=== PATIENT | male | born 1980 | race Hispanic/Latino ===

== ENCOUNTER 2017-01-23 01:50 | Emergency (ER) | payer SELFPAY ==
[2017-01-23 03:59] LABS: Basophils % (Auto) 0.4 % (0.0-1.8); Eosinophils % (Auto) 0.6 % (0.0-4.3); Hematocrit 37.7 % (35.5-45.6); Hemoglobin 12.7 gm/dl (11.8-15.2); Mean Corpuscular HGB Conc 34 % (32-34); Mean Corpuscular Hemoglobin 29 pg (28-32); Mean Corpuscular Volume 87 fl (84-94); Platelet Count 309 K/mm3 (140-440); Red Blood Count 4.33 M/mm3 (3.65-5.03); Red Cell Distribution Width 14.7 % (13.2-15.2); White Blood Count 8.1 K/mm3 (4.5-11.0)
--- NOTE | 2017-01-23 04:45 | Cat Scan Report ---
FINAL REPORT PROCEDURE: CT HEAD/BRAIN WO CON TECHNIQUE: Computerized tomography of the head was performed without contrast material. HISTORY: ams COMPARISON: No prior studies are available for comparison. FINDINGS: Skull and scalp: Normal. Paranasal sinuses: Normal. Ventricles and subarachnoid spaces: Normal. Cerebrum: No evidence of hemorrhage, acute infarction or mass . Cerebellum and brainstem: No evidence of hemorrhage, acute infarction or mass. Vasculature: Normal. Comments: None. IMPRESSION: Normal Examination
[2017-01-23 05:12] LABS: Alanine Aminotransferase 105 units/L (7-56); Albumin 4.6 g/dL (3.9-5); Albumin/Globulin Ratio 1.3 %; Alkaline Phosphatase 92 units/L (35-129); Anion Gap 24 mmol/L; Blood Urea Nitrogen 14 mg/dL (9-20); Calcium 9.9 mg/dL (8.4-10.2); Carbon Dioxide 23 mmol/L (22-30); Chloride 105.7 mmol/L (98-107); Glucose 124 mg/dL (75-100); Potassium 3.2 mmol/L (3.6-5.0); Sodium 149 mmol/L (137-145); Total Protein 8.1 g/dL (6.3-8.2)
[2017-01-23] MEDS ORDERED: NACL 0.9% 1000 ML 1,000 ML IV ONE (06:24)
--- NOTE | 2017-01-23 06:30 | Emergency Department Report ---
ED Altered Mental Status HPI - General Chief Complaint: Abdominal Pain Stated Complaint: SEIZURE/ABD PAIN Time Seen by Provider: 01/23/17 06:05 Source: EMS Mode of arrival: Stretcher Limitations: Altered Mental Status, Other - History of Present Illness MD Complaint: altered mental status, confusion, decreased responsiveness, intoxication, weakness -: Gradual Severity: moderate Consistency of Symptoms: waxing and waning Context: alcohol abuse, drug abuse Associated Symptoms: weakness, foul smelling urine. denies: chest pain, cough, diaphoresis, fever/chills, headaches, loss of appetite, malaise, nausea/vomiting , rash, seizure, shortness of breath, syncope, difficulty walking, diarrhea, incontinence Treatments Prior to Arrival: IV fluid - Related Data Allergies Allergy/AdvReac Type Severity Reaction Status Date / Time Unable to Assess Allergy Unverified 01/23/17 02:44 ED Review of Systems ROS: Stated complaint: SEIZURE/ABD PAIN Other details as noted in HPI Comment: Unobtainable due to pts medical conditions ED Past Medical Hx - Past Medical History Previous Medical History?: Yes - Surgical History Past Surgical History?: Yes - Social History Smoking Status: Current Every Day Smoker Substance Use Type: None ED Physical Exam - General Limitations: Other General appearance: lethargic, obtunded - Head Head exam: Present: atraumatic, normocephalic - Eye Eye exam: Present: normal appearance, PERRL - ENT ENT exam: Present: normal exam, normal orophraynx - Neck Neck exam: Present: normal inspection - Respiratory Respiratory exam: Present: normal lung sounds bilaterally. Absent: respiratory distress, wheezes, rales, rhonchi - Cardiovascular Cardiovascular Exam: Present: regular rate, normal rhythm - GI/Abdominal GI/Abdominal exam: Present: soft. Absent: distended, tenderness, guarding, rebound - Extremities Exam Extremities exam: Present: normal inspection - Back Exam Back exam: Present: normal inspection, full ROM - Skin Skin exam: Present: warm ED Course Vital Signs 01/23/17 01/23/17 01/23/17 02:13 03:36 04:35 Temperature 99 F 99 F 98 F Pulse Rate 112 H 104 H 89 Respiratory 18 18 18 Rate Blood Pressure Blood Pressure 122/79 115/69 [Left] O2 Sat by Pulse 99 100 96 Oximetry 01/23/17 01/23/17 06:35 08:58 Temperature 99 F Pulse Rate 86 97 H Respiratory 18 14 Rate Blood Pressure 120/81 Blood Pressure 108/57 [Left] O2 Sat by Pulse 96 99 Oximetry - Lab Data Result diagrams: 01/23/17 03:22 01/23/17 03:22 Lab Results 01/23/17 01/23/17 01/23/17 Range/Units 03:22 03:22 03:22 WBC 8.1 (4.5-11.0) K/mm3 RBC 4.33 (3.65-5.03) M/mm3 Hgb 12.7 (11.8-15.2) gm/dl Hct 37.7 (35.5-45.6) % MCV 87 (84-94) fl MCH 29 (28-32) pg MCHC 34 (32-34) % RDW 14.7 (13.2-15.2) % Plt Count 309 (140-440) K/mm3 Lymph % (Auto) 28.3 (13.4-35.0) % [place] % (Auto) 9.9 H (0.0-7.3) % Eos % (Auto) 0.6 (0.0-4.3) % Baso % (Auto) 0.4 (0.0-1.8) % Lymph # 2.3 (1.2-5.4) K/mm3 [place] # 0.8 (0.0-0.8) K/mm3 Eos # 0.0 (0.0-0.4) K/mm3 Baso # 0.0 (0.0-0.1) K/mm3 Seg Neutrophils % 60.8 (40.0-70.0) % Seg Neutrophils # 4.9 (1.8-7.7) K/mm3 Sodium 149 H (137-145) mmol/L Potassium 3.2 L (3.6-5.0) mmol/L Chloride 105.7 (98-107) mmol/L Carbon Dioxide 23 (22-30) mmol/L Anion Gap 24 mmol/L BUN 14 (9-20) mg/dL Creatinine 0.8 (0.8-1.5) mg/dL Estimated GFR > 60 ml/min BUN/Creatinine Ratio 17.50 % Glucose 124 H (75-100) mg/dL Lactic Acid 1.30 (0.7-2.0) mmol/L Calcium 9.9 (8.4-10.2) mg/dL Magnesium 2.10 (1.7-2.3) mg/dL Total Bilirubin 0.40 (0.1-1.2) mg/dL AST 62 H (5-40) units/L ALT 105 H (7-56) units/L Alkaline Phosphatase 92 (35-129) units/L Ammonia (25-60) umol/L Total Creatine Kinase (55-170) units/L Total Protein 8.1 (6.3-8.2) g/dL Albumin 4.6 (3.9-5) g/dL Albumin/Globulin Ratio 1.3 % TSH (0.270-4.200) mlU/mL Salicylates (2.8-20.0) mg/dL Acetaminophen (10.0-30.0) ug/mL Plasma/Serum Alcohol (0-0.07) gm% 01/23/17 01/23/17 01/23/17 Range/Units 03:22 03:22 03:22 WBC (4.5-11.0) K/mm3 RBC (3.65-5.03) M/mm3 Hgb (11.8-15.2) gm/dl Hct (35.5-45.6) % MCV (84-94) fl MCH (28-32) pg MCHC (32-34) % RDW (13.2-15.2) % Plt Count (140-440) K/mm3 Lymph % (Auto) (13.4-35.0) % [place] % (Auto) (0.0-7.3) % Eos % (Auto) (0.0-4.3) % Baso % (Auto) (0.0-1.8) % Lymph # (1.2-5.4) K/mm3 [place] # (0.0-0.8) K/mm3 Eos # (0.0-0.4) K/mm3 Baso # (0.0-0.1) K/mm3 Seg Neutrophils % (40.0-70.0) % Seg Neutrophils # (1.8-7.7) K/mm3 Sodium (137-145) mmol/L Potassium (3.6-5.0) mmol/L Chloride (98-107) mmol/L Carbon Dioxide (22-30) mmol/L Anion Gap mmol/L BUN (9-20) mg/dL Creatinine (0.8-1.5) mg/dL Estimated GFR ml/min BUN/Creatinine Ratio % Glucose (75-100) mg/dL Lactic Acid (0.7-2.0) mmol/L Calcium (8.4-10.2) mg/dL Magnesium (1.7-2.3) mg/dL Total Bilirubin (0.1-1.2) mg/dL AST (5-40) units/L ALT (7-56) units/L Alkaline Phosphatase (35-129) units/L Ammonia (25-60) umol/L Total Creatine Kinase (55-170) units/L Total Protein (6.3-8.2) g/dL Albumin (3.9-5) g/dL Albumin/Globulin Ratio % TSH 0.134 L (0.270-4.200) mlU/mL Salicylates < 0.3 L (2.8-20.0) mg/dL Acetaminophen < 15.0 (10.0-30.0) ug/mL Plasma/Serum Alcohol (0-0.07) gm% 01/23/17 01/23/17 01/23/17 Range/Units 03:22 05:34 06:47 WBC (4.5-11.0) K/mm3 RBC (3.65-5.03) M/mm3 Hgb (11.8-15.2) gm/dl Hct (35.5-45.6) % MCV (84-94) fl MCH (28-32) pg MCHC (32-34) % RDW (13.2-15.2) % Plt Count (140-440) K/mm3 Lymph % (Auto) (13.4-35.0) % [place] % (Auto) (0.0-7.3) % Eos % (Auto) (0.0-4.3) % Baso % (Auto) (0.0-1.8) % Lymph # (1.2-5.4) K/mm3 [place] # (0.0-0.8) K/mm3 Eos # (0.0-0.4) K/mm3 Baso # (0.0-0.1) K/mm3 Seg Neutrophils % (40.0-70.0) % Seg Neutrophils # (1.8-7.7) K/mm3 Sodium (137-145) mmol/L Potassium (3.6-5.0) mmol/L Chloride (98-107) mmol/L Carbon Dioxide (22-30) mmol/L Anion Gap mmol/L BUN (9-20) mg/dL Creatinine (0.8-1.5) mg/dL Estimated GFR ml/min BUN/Creatinine Ratio % Glucose (75-100) mg/dL Lactic Acid 0.90 1.20 (0.7-2.0) mmol/L Calcium (8.4-10.2) mg/dL Magnesium (1.7-2.3) mg/dL Total Bilirubin (0.1-1.2) mg/dL AST (5-40) units/L ALT (7-56) units/L Alkaline Phosphatase (35-129) units/L Ammonia (25-60) umol/L Total Creatine Kinase (55-170) units/L Total Protein (6.3-8.2) g/dL Albumin (3.9-5) g/dL Albumin/Globulin Ratio % TSH (0.270-4.200) mlU/mL Salicylates (2.8-20.0) mg/dL Acetaminophen (10.0-30.0) ug/mL Plasma/Serum Alcohol < 0.01 (0-0.07) gm% 01/23/17 01/23/17 Range/Units 06:47 06:47 WBC (4.5-11.0) K/mm3 RBC (3.65-5.03) M/mm3 Hgb (11.8-15.2) gm/dl Hct (35.5-45.6) % MCV (84-94) fl MCH (28-32) pg MCHC (32-34) % RDW (13.2-15.2) % Plt Count (140-440) K/mm3 Lymph % (Auto) (13.4-35.0) % [place] % (Auto) (0.0-7.3) % Eos % (Auto) (0.0-4.3) % Baso % (Auto) (0.0-1.8) % Lymph # (1.2-5.4) K/mm3 [place] # (0.0-0.8) K/mm3 Eos # (0.0-0.4) K/mm3 Baso # (0.0-0.1) K/mm3 Seg Neutrophils % (40.0-70.0) % Seg Neutrophils # (1.8-7.7) K/mm3 Sodium (137-145) mmol/L Potassium (3.6-5.0) mmol/L Chloride (98-107) mmol/L Carbon Dioxide (22-30) mmol/L Anion Gap mmol/L BUN (9-20) mg/dL Creatinine (0.8-1.5) mg/dL Estimated GFR ml/min BUN/Creatinine Ratio % Glucose (75-100) mg/dL Lactic Acid (0.7-2.0) mmol/L Calcium (8.4-10.2) mg/dL Magnesium (1.7-2.3) mg/dL Total Bilirubin (0.1-1.2) mg/dL AST (5-40) units/L ALT (7-56) units/L Alkaline Phosphatase (35-129) units/L Ammonia 73.0 H (25-60) umol/L Total Creatine Kinase 249 H (55-170) units/L Total Protein (6.3-8.2) g/dL Albumin (3.9-5) g/dL Albumin/Globulin Ratio % TSH (0.270-4.200) mlU/mL Salicylates (2.8-20.0) mg/dL Acetaminophen (10.0-30.0) ug/mL Plasma/Serum Alcohol (0-0.07) gm% - Radiology Data Radiology results: report reviewed, image reviewed - Medical Decision Making patient doing well, awake and eating , called who will pick him up in the ER, has no complaints at this time. VSS and normal Critical care attestation.: If time is entered above; I have spent that time in minutes in the direct care of this critically ill patient, excluding procedure time. ED Disposition Clinical Impression: Abdominal pain Disposition: DC-01 TO HOME OR SELFCARE Is pt being admited?: No Does the pt Need Aspirin: No Condition: Good Instructions: Abdominal Pain (ED) Referrals: PRIMARY CARE, [Primary Care Provider] - 3-5 Days Time of Disposition: 11:08
[2017-01-23 12:30] VITALS: BP 134/89
== END 2017-01-23 12:30 | disposition home or self-care (01) ==
LOC: ED 01:50
DX: R10.9 Unspecified abdominal pain (principal); R53.1 Weakness; F17.210 Nicotine dependence, cigarettes, uncomplicated
CPT/HCPCS: 36415; 70450; 80053; 82140; 82550; 83735; 84443; 85025; 93005; 93010; 96360; 99285; G0480; J7030; 80320

== ENCOUNTER 2017-01-29 02:56 | Emergency (ER) | payer OTHER ==
[2017-01-29 03:40] LABS: Basophils % (Auto) 0.3 % (0.0-1.8); Eosinophils % (Auto) 0.5 % (0.0-4.3); Hematocrit 38.4 % (35.5-45.6); Hemoglobin 13.1 gm/dl (11.8-15.2); Mean Corpuscular HGB Conc 34 % (32-34); Mean Corpuscular Hemoglobin 30 pg (28-32); Mean Corpuscular Volume 87 fl (84-94); Platelet Count 334 K/mm3 (140-440); Red Blood Count 4.43 M/mm3 (3.65-5.03); Red Cell Distribution Width 14.3 % (13.2-15.2); White Blood Count 8.4 K/mm3 (4.5-11.0)
[2017-01-29 03:53] LABS: Anion Gap 21 mmol/L; BUN/Creatinine Ratio 18.57; Blood Urea Nitrogen 13 mg/dL (9-20); Calcium 9.6 mg/dL (8.4-10.2); Carbon Dioxide 24 mmol/L (22-30); Glucose 99 mg/dL (75-100); Potassium 3.1 mmol/L (3.6-5.0); Sodium 139 mmol/L (137-145)
[2017-01-29] MEDS ORDERED: K-DUR PO ONE (06:44)
[2017-01-29] MEDS ORDERED: KEPPRA 1,000 MG/NS 0.75% 100ML 1,000 MG/100 ML BAG IV ONE (06:53)
[2017-01-29] MEDS ORDERED: NACL 0.9% 1000 ML 1,000 ML IV ONE (06:53)
--- NOTE | 2017-01-29 07:01 | Emergency Department Report ---
HPI - General Chief Complaint: Seizure Time Seen by Provider: 01/29/17 06:44 - HPI HPI: This is a 36-year-old male presents to the emergency department with complaint of a seizure earlier today. The patient says that he has some type of aura in which she knows that the seizure is oncoming. He says that he sat down and called EMS and then had a seizure. He does admit to a seizure history and he also admits to medication noncompliance the past 9 months. He thinks that he usually takes Depakote. He does not currently have a primary care doctor. He is a tobacco smoker. 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 No recent travel or sick contacts at home. In reviewing this patient's charts, it appears that the patient was here 5 days ago for abdominal pain but also there is some mention of seizure-like activity at that time as well. ED Past Medical Hx - Past Medical History Previous Medical History?: Yes Hx Seizures: Yes - Surgical History Past Surgical History?: Yes Hx Appendectomy: Yes - Social History Smoking Status: Current Every Day Smoker Substance Use Type: None - Medications Home Medications: Home Medications Medication Instructions Recorded Confirmed Last Taken Type Nitrofurantoin Clay/M-Cryst 100 mg PO Q12HR #14 capsule 01/29/17 Unknown Rx [Macrobid CAP] levETIRAcetam [Keppra TAB] 500 mg PO BID #60 tablet 01/29/17 Unknown Rx ED Review of Systems ROS: Stated complaint: SEIZURES Other details as noted in HPI Comment: All other systems reviewed and negative Constitutional: denies: chills, fever Eyes: denies: eye pain, eye discharge, vision change ENT: denies: ear pain, throat pain Respiratory: denies: cough, shortness of breath, wheezing Cardiovascular: denies: chest pain, palpitations Gastrointestinal: denies: abdominal pain, nausea, diarrhea Genitourinary: denies: urgency, dysuria Musculoskeletal: denies: back pain, joint swelling, arthralgia Skin: denies: rash, lesions Neurological: other (seizure). denies: headache, weakness, paresthesias Physical Exam - Physical Exam Vital Signs: Vital Signs 01/29/17 01/29/17 01/29/17 02:51 03:00 03:10 Pulse Rate 80 65 Respiratory 31 H 20 Rate Blood Pressure O2 Sat by Pulse 100 100 90 Oximetry 01/29/17 01/29/17 01/29/17 03:20 03:30 03:40 Pulse Rate 64 76 67 Respiratory 18 15 18 Rate Blood Pressure O2 Sat by Pulse 99 97 100 Oximetry 01/29/17 01/29/17 01/29/17 03:50 04:00 04:10 Pulse Rate 73 62 64 Respiratory 19 20 18 Rate Blood Pressure O2 Sat by Pulse 100 100 100 Oximetry 01/29/17 01/29/17 01/29/17 04:20 04:30 04:40 Pulse Rate 73 58 L 60 Respiratory 20 18 19 Rate Blood Pressure 92/55 O2 Sat by Pulse 99 100 100 Oximetry 01/29/17 01/29/17 01/29/17 04:50 05:00 05:10 Pulse Rate 55 L 57 L 61 Respiratory 19 18 19 Rate Blood Pressure 103/63 99/65 99/65 O2 Sat by Pulse 100 100 100 Oximetry 01/29/17 01/29/17 01/29/17 05:20 05:30 05:40 Pulse Rate 53 L 55 L 83 Respiratory 18 16 15 Rate Blood Pressure 104/66 106/61 106/61 O2 Sat by Pulse 99 100 100 Oximetry 01/29/17 01/29/17 01/29/17 05:50 06:00 06:10 Pulse Rate 54 L 57 L 64 Respiratory 17 16 18 Rate Blood Pressure 110/66 102/68 102/68 O2 Sat by Pulse 100 100 100 Oximetry 01/29/17 01/29/17 06:20 06:30 Pulse Rate 59 L 65 Respiratory 15 16 Rate Blood Pressure 96/56 104/65 O2 Sat by Pulse 100 100 Oximetry Physical Exam: GENERAL: The patient is well-developed well-nourished. HEENT: Normocephalic. Atraumatic. Extraocular motions are intact. Patient has moist mucous membranes. Pupils equal reactive to light bilaterally. NECK: Supple. Trachea is midline. Full range of motion. Nontender to palpation. CHEST/LUNGS: Clear to auscultation. There is no respiratory distress noted. HEART/CARDIOVASCULAR: Regular. There is no tachycardia. There is no gallop rub or murmur. ABDOMEN: Abdomen is soft, nontender. Patient has normal bowel sounds. There is no abdominal distention. SKIN: Skin is warm and dry. NEURO: Patient is sleepy but easily arousable. Once awake he is alert and oriented. The patient is cooperative. The patient has no focal neurologic deficits. The patient has normal speech. Cranial nerves II through XII grossly intact. MUSCULOSKELETAL: There is no tenderness or deformity. There is no limitation range of motion. There is no evidence of acute injury. ED Course Vital Signs 01/29/17 01/29/17 01/29/17 02:51 03:00 03:10 Pulse Rate 80 65 Respiratory 31 H 20 Rate Blood Pressure O2 Sat by Pulse 100 100 90 Oximetry 01/29/17 01/29/17 01/29/17 03:20 03:30 03:40 Pulse Rate 64 76 67 Respiratory 18 15 18 Rate Blood Pressure O2 Sat by Pulse 99 97 100 Oximetry 01/29/17 01/29/17 01/29/17 03:50 04:00 04:10 Pulse Rate 73 62 64 Respiratory 19 20 18 Rate Blood Pressure O2 Sat by Pulse 100 100 100 Oximetry 01/29/17 01/29/17 01/29/17 04:20 04:30 04:40 Pulse Rate 73 58 L 60 Respiratory 20 18 19 Rate Blood Pressure 92/55 O2 Sat by Pulse 99 100 100 Oximetry 01/29/17 01/29/17 01/29/17 04:50 05:00 05:10 Pulse Rate 55 L 57 L 61 Respiratory 19 18 19 Rate Blood Pressure 103/63 99/65 99/65 O2 Sat by Pulse 100 100 100 Oximetry 01/29/17 01/29/17 01/29/17 05:20 05:30 05:40 Pulse Rate 53 L 55 L 83 Respiratory 18 16 15 Rate Blood Pressure 104/66 106/61 106/61 O2 Sat by Pulse 99 100 100 Oximetry 01/29/17 01/29/17 01/29/17 05:50 06:00 06:10 Pulse Rate 54 L 57 L 64 Respiratory 17 16 18 Rate Blood Pressure 110/66 102/68 102/68 O2 Sat by Pulse 100 100 100 Oximetry 01/29/17 01/29/17 06:20 06:30 Pulse Rate 59 L 65 Respiratory 15 16 Rate Blood Pressure 96/56 104/65 O2 Sat by Pulse 100 100 Oximetry ED Medical Decision Making - Lab Data Result diagrams: 01/29/17 03:01/29/17 03:05 - EKG Data -: EKG Interpreted by Me EKG shows normal: sinus rhythm (with sinus arrhythmia), axis, intervals ( prolonged QTC), QRS complexes, ST-T waves Rate: normal - EKG Data When compared to previous EKG there are: no significant change Interpretation: unchanged when compared t (01/23/17) - Medical Decision Making 36 year old male presents to the emergency department after alleged seizure. He does have a history of seizures and has been noncompliant with these medications. Patient is sleepy but arousable. There are no focal, motor or sensory deficits. Cranial nerves are intact. His labs are mostly unremarkable and do not show any etiology of the patient's symptoms except for his urine drug screen which came back positive for polypharmacy/polysubstance abuse being positive for benzodiazepine's, barbituates, meth and cocaine. The patient also has a urinary tract infection. Given first dose of Macrobid here. He was reevaluated multiple times for multiple hours and has remained awake and alert without any further seizure-like activity. He was given a loading dose of Keppra. He will go home on Keppra twice a day and Macrobid for 7 days. He was given referrals for primary care, urology and neurology. He will return to the ER with any worsening of symptoms or any acute distress. Critical Care Time: No Critical care attestation.: If time is entered above; I have spent that time in minutes in the direct care of this critically ill patient, excluding procedure time. ED Disposition Clinical Impression: Seizure UTI (urinary tract infection) Qualifiers: Urinary tract infection type: acute cystitis Hematuria presence: without hematuria Qualified Code(s): N30.00 - Acute cystitis without hematuria Disposition: - TO HOME OR SELFCARE Is pt being admited?: No Condition: Stable Instructions: Urinary Tract Infection in Men (ED), Epilepsy (ED) Additional Instructions: Please follow-up with a primary care physician in the next few days. I've also given you a referral for a local urologist, Dr. Murrieta, to follow up regarding your urinary tract infection. I have started you on a seizure medication called Keppra to be taken twice daily. Return to the emergency department with any worsening of your symptoms or any acute distress. I will also give you a referral for a local neurologist, Dr. Matias, to follow up regarding your seizures. Prescriptions: levETIRAcetam [Keppra TAB] 500 mg PO BID #60 tablet Nitrofurantoin Clay/M-Cryst [Macrobid CAP] 100 mg PO Q12HR #14 capsule Referrals: PRIMARY CARE, [Primary Care Provider] - 3-5 Days JONI MATIAS MD [Staff Physician] - 3-5 Days DESTINI MURRIETA MD [Staff Physician] - 3-5 Days [facility] [Outside] - 3-5 Days Time of Disposition: 12:25
[2017-01-29 11:28] LABS: Urine Drugs of Abuse Note Disclamer
[2017-01-29 11:52] LABS: Bacteria,Urine 1+ /HPF (Negative); Bilirubin,Urine NEG (Negative); Blood,Urine SM (Negative); Ketones,Urine 20 mg/dL (Negative); Leukocyte Esterase,Urine LG (Negative); Mucus,Urine 1+ /HPF; Nitrite,Urine NEG (Negative)
[2017-01-29 11:57] LABS: WBC,Urine > 182.0 /HPF (0.0-6.0)
[2017-01-29] MEDS ORDERED: MACROBID PO ONE (12:04)
[2017-01-29 12:53] VITALS: BP 122/76
== END 2017-01-29 13:15 | disposition home or self-care (01) ==
LOC: ED 02:56
DX: R56.9 Unspecified convulsions (principal); N30.00 Acute cystitis without hematuria; F17.200 Nicotine dependence, unspecified, uncomplicated
CPT/HCPCS: 36415; 80048; 80178; 80307; 81001; 84443; 84484; 85025; 93005; 93010; 96361; 96374; 99284; G0480; J1953; J7030; 80320

== ENCOUNTER 2017-03-12 02:27 | Emergency (ER) | payer SELFPAY ==
[2017-03-12 05:24] VITALS: BP 135/94
[2017-03-12 06:41] LABS: Hematocrit 38.6 % (35.5-45.6); Hemoglobin 13.3 gm/dl (11.8-15.2); Mean Corpuscular HGB Conc 35 % (32-34); Mean Corpuscular Hemoglobin 30 pg (28-32); Mean Corpuscular Volume 88 fl (84-94); Platelet Count 346 K/mm3 (140-440); Red Blood Count 4.39 M/mm3 (3.65-5.03); Red Cell Distribution Width 13.8 % (13.2-15.2); White Blood Count 7.3 K/mm3 (4.5-11.0)
--- NOTE | 2017-03-12 06:46 | Cat Scan Report ---
FINAL REPORT PROCEDURE: CT HEAD/BRAIN WO CON TECHNIQUE: Computerized tomography of the head was performed without contrast material. HISTORY: syncope, memory loss, MORALES, Falling COMPARISON: No prior studies are available for comparison. FINDINGS: Skull and scalp: Normal. Paranasal sinuses: Normal. Ventricles and subarachnoid spaces: Normal. Cerebrum: No evidence of hemorrhage, acute infarction or mass . Cerebellum and brainstem: No evidence of hemorrhage, acute infarction or mass. Vasculature: Normal. Comments: None. IMPRESSION: There is no evidence of an acute intracranial process
[2017-03-12 06:51] LABS: Anion Gap 16 mmol/L; Blood Urea Nitrogen 12 mg/dL (9-20); Calcium 9.4 mg/dL (8.4-10.2); Carbon Dioxide 29 mmol/L (22-30); Chloride 97.3 mmol/L (98-107); Glucose 125 mg/dL (75-100); Potassium 4.5 mmol/L (3.6-5.0); Sodium 138 mmol/L (137-145)
--- NOTE | 2017-03-19 23:37 | ED Elopement Review ---
ED Pt Elopement review - Results review Lab results: Laboratory Tests 03/12/17 03/12/17 03/12/17 06:26 06:26 06:26 WBC 7.3 RBC 4.39 Hgb 13.3 Hct 38.6 MCV 88 MCH 30 MCHC 35 H RDW 13.8 Plt Count 346 Sodium 138 Potassium 4.5 Chloride 97.3 L Carbon Dioxide 29 Anion Gap 16 BUN 12 Creatinine 0.6 L Estimated GFR > 60 BUN/Creatinine Ratio 20.00 Glucose 125 H Calcium 9.4 Valproic Acid < 2.8 L - Call Back decision Pt Call Back Decision: No action required
== END 2017-03-12 07:00 | disposition left against medical advice (07) ==
LOC: ED 02:27
DX: R51 Headache (principal); Z53.21 Procedure and treatment not carried out due to patient leaving prior to being seen by health care provider
CPT/HCPCS: 36415; 70450; 80048; 80164; 85027

== ENCOUNTER 2017-06-01 23:32 | Emergency (ER) | payer SELFPAY ==
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
[2017-06-02] MEDS ORDERED: TORADOL IM ONE (20:15)
[2017-06-02] MEDS ORDERED: NORCO 5/325 PO ONE (20:15)
[2017-06-02] MEDS ORDERED: ZOFRAN ODT PO ONE (20:16)
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
[2017-06-02 21:16] LABS: Basophils % (Auto) 0.3 % (0.0-1.8); Eosinophils % (Auto) 0.9 % (0.0-4.3); Hematocrit 41.2 % (35.5-45.6); Mean Corpuscular HGB Conc 34 % (32-34); Mean Corpuscular Hemoglobin 31 pg (28-32); Mean Corpuscular Volume 90 fl (84-94); Platelet Count 286 K/mm3 (140-440); Red Blood Count 4.58 M/mm3 (3.65-5.03); Red Cell Distribution Width 13.4 % (13.2-15.2); White Blood Count 9.6 K/mm3 (4.5-11.0)
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
[2017-06-02 21:28] LABS: Alanine Aminotransferase 45 units/L (7-56); Albumin 4.5 g/dL (3.9-5); Albumin/Globulin Ratio 1.7 %; Alkaline Phosphatase 110 units/L (35-129); Anion Gap 18 mmol/L; BUN/Creatinine Ratio 18; Blood Urea Nitrogen 11 mg/dL (9-20); Calcium 9.1 mg/dL (8.4-10.2); Carbon Dioxide 26 mmol/L (22-30); Chloride 100.1 mmol/L (98-107); Glucose 98 mg/dL (75-100); Potassium 3.9 mmol/L (3.6-5.0); Sodium 140 mmol/L (137-145); Total Protein 7.2 g/dL (6.3-8.2)
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
[2017-06-02 23:30] VITALS: BP 115/67
[2017-06-03 06:20] LABS: Urine Drugs of Abuse Note Disclamer
== END 2017-06-03 02:09 | disposition home or self-care (01) ==
LOC: ED 23:32
DX: S09.90XA Unspecified injury of head, initial encounter (principal); F17.210 Nicotine dependence, cigarettes, uncomplicated; N20.0 Calculus of kidney; Z88.0 Allergy status to penicillin; Y08.89XA Assault by other specified means, initial encounter; Y93.89 Activity, other specified; Y92.89 Other specified places as the place of occurrence of the external cause; Y99.8 Other external cause status
CPT/HCPCS: 36415; 70450; 72125; 74176; 80053; 80307; 85025; 96372; 99284

== ENCOUNTER → 2017-06-02 | Emergency (ER) | payer SELFPAY ==
[~2017-06-02] MED LIST: NORCO 5/325 ONE; TORADOL ONE; ZOFRAN ODT ONE
[2017-06-02 09:00] VITALS: BP 103/71
== END ==
LOC: ED 08:43
DX: R51 Headache (principal); Z53.21 Procedure and treatment not carried out due to patient leaving prior to being seen by health care provider
CPT/HCPCS: J1885; Q0162

== ENCOUNTER 2017-06-03 04:30 | Emergency (ER) | payer SELFPAY ==
[2017-06-03 04:33] VITALS: BP 107/73
== END 2017-06-03 08:00 | disposition left against medical advice (07) ==
LOC: ED 04:30
DX: Z53.21 Procedure and treatment not carried out due to patient leaving prior to being seen by health care provider (principal)